=== PATIENT | male | born 1980 | race Caucasian/White ===

== ENCOUNTER 2021-06-29 03:25 | Emergency (ER) | payer SELFPAY ==
[~2021-06-29] VITALS: Ht 165.1 cm; Wt 63.5 kg
--- NOTE | 2021-06-29 03:41 | NUR ---
pt ambulated to room 4a. pt c/o lower extrem rash.
[2021-06-29] MEDS ORDERED: IV NORMAL SALINE 1000 ML BAG IV ONE (04:00)
[2021-06-29] MEDS ORDERED: PIPERACILLIN SODIUM/TAZOBACTAM 3.375 G in IV DEXTROSE 5% 50 ML IV ONE (04:00)
[2021-06-29] MEDS ORDERED: VANCOMYCIN IV 1,000 MG in IV DEXTROSE 5% 250 ML IV ONE (04:00)
[2021-06-29] MEDS ORDERED: KETOROLAC TROMETHAMINE 30 MG INJ IVP ONE (04:30)
[2021-06-29] MEDS ORDERED: VANCOMYCIN IV 200 ML ONE (04:32)
[2021-06-29] MEDS ORDERED: PIPERACILLIN/TAZOBACTAM/D5W 50 ML IV ONE (04:32)
--- NOTE | 2021-06-29 04:33 | NUR ---
radiology at bedside.
[2021-06-29] MEDS ORDERED: KETOROLAC TROMETHAMINE 30 MG INJ ONE (04:44)
[2021-06-29] MEDS ORDERED: ONDANSETRON 4 MG/2 ML VIAL IV ONE (04:45)
[2021-06-29] MEDS ORDERED: MORPHINE SULFATE 4 MG/1 ML DISP.SYRIN IV ONE (04:45)
[2021-06-29] MEDS ORDERED: MORPHINE SULFATE 4 MG/1 ML DISP.SYRIN ONE (04:55)
[2021-06-29] MEDS ORDERED: ONDANSETRON 4 MG/2 ML VIAL ONE (04:55)
[2021-06-29 04:57] LABS: HEMATOCRIT 41.3 % (36.7-47.1); MEAN CORPUSCULAR HEMOGLOBIN 30.5 uug (23.8-33.4); MEAN CORPUSCULAR VOLUME 88.7 fL (73.0-96.2); PLATELET COUNT (AUTO) 330 K/uL (152-348)
[2021-06-29 05:00] LABS: CARBON DIOXIDE 31 mmol/L (21-32); CHLORIDE 102 mmol/L (98-107); CREATININE 1.2 mg/dL (0.6-1.3); GLUCOSE 142 mg/dL (74-106); POTASSIUM 3.9 mmol/L (3.5-5.1); UREA NITROGEN, BLOOD 15 mg/dL (7-18)
[2021-06-29 05:05] LABS: ALANINE AMINOTRANSFERASE 50 U/L (16-63); ALKALINE PHOSPHATASE 112 U/L (50-136); ASPARTATE AMINOTRANSFERASE 28 U/L (15-37); BILIRUBIN,DIRECT < 0.1 mg/dL (0.0-0.2); BILIRUBIN,TOTAL 0.2 mg/dL (0.2-1.0); TOTAL PROTEIN, SERUM 8.1 g/dL (6.4-8.2)
--- NOTE | 2021-06-29 05:09 | NUR ---
pt has received zosyn iv, currently receiving vancomycin ivpb. pt is drowsy but awakens easily.
[2021-06-29] MEDS ORDERED: CEPH500C2 PO (06:26)
[2021-06-29] MEDS ORDERED: SULF1TAB48 PO (06:26)
[2021-06-29] MEDS ORDERED: HYDR-4209 PO (06:26)
--- NOTE | 2021-06-29 06:26 | NUR ---
call to pts friend Rima at [phone]. left message as there is no answer.
--- NOTE | 2021-06-29 06:47 | NUR ---
Patient discharged to home in stable condition. Written and verbal after care instructions given. Patient verbalizes understanding of instructions. Stressed follow up or return to ER for worsening s/s. iv removed, all d/c instructions reviewed with pt. informed pt it is time to go. pt continues to not want to leave. informed security.
[2021-06-29 07:01] VITALS: BP 130/82
== END 2021-06-29 07:01 | disposition home or self-care (01) ==
LOC: ER 03:30
DX: L03.012 Cellulitis of left finger (principal); S80.812A Abrasion, left lower leg, initial encounter; L08.9 Local infection of the skin and subcutaneous tissue, unspecified; X58.XXXA Exposure to other specified factors, initial encounter; Y92.89 Other specified places as the place of occurrence of the external cause; Z59.02 Unsheltered homelessness; F17.200 Nicotine dependence, unspecified, uncomplicated; Z20.822 Contact with and (suspected) exposure to COVID-19
CPT/HCPCS: 36415; 73140; 73590; 80048; 80076; 85025; 87426; 96365; 96367; 96375; 99284; J1885; J2270; J2405; J2543; J3370; A4663; J7030

== ENCOUNTER 2021-07-26 03:15 | Emergency (ER) | payer MEDICAID ==
[~2021-07-26] VITALS: Ht 167.6 cm; Wt 63.5 kg
[~2021-07-26 03:15] MED LIST: CEPH500C2 PO; HYDR-4209 PO; SULF1TAB48 PO
[2021-07-26] MEDS ORDERED: SULFAMETH/TRIMETH 800/160 MG TABLET PO ONE (03:30)
[2021-07-26] MEDS ORDERED: CEphaleXIN 500 MG CAPSULE PO ONE (03:30)
[2021-07-26] MEDS ORDERED: HYDROCODONE/APAP 5-325MG TABLET PO ONE (03:30)
[2021-07-26] MEDS ORDERED: CEPH500T PO (03:45)
[2021-07-26] MEDS ORDERED: SULF1TAB48 PO (03:45)
[2021-07-26] MEDS ORDERED: HYDR-4209 PO (03:45)
[2021-07-26] MEDS ORDERED: SULFAMETH/TRIMETH 800/160 MG TABLET ONE (03:56)
[2021-07-26] MEDS ORDERED: CEphaleXIN 500 MG CAPSULE ONE (03:57)
[2021-07-26] MEDS ORDERED: HYDROCODONE/APAP 5-325MG TABLET ONE (03:58)
--- NOTE | 2021-07-26 04:38 | NUR ---
Pt brought into room ED5A by telesales advisor Gamaliel because pt had multiple wounds and abcesses on all 4 ext. Pt states that he is in need of an abx scribt and that the one he had from a previous visit was never filled because he had lost it. Pt has good color and appearance, VSS, PE wnl except for abcesses. Pt has good strength and strong and reg pulses x4ext. Lungs clear, oxygenating and perfusing well. pt has mild pain and denies any SOB, n/v or dizziness. No s/sx of distress noted.
--- NOTE | 2021-07-26 04:39 | NUR ---
EDMD at bedside for eval
--- NOTE | 2021-07-26 04:40 | NUR ---
EDMD ordered abx and opiod for pain as well as some wound care and dressings.
--- NOTE | 2021-07-26 04:42 | NUR ---
Medications given, wounds cleansed and dressed, Dc instructions given and pt confirmed understanding of aftercare. VSS, pe wnl, pt has good color and is oxygenating well. no complaints of pain, sob, n/v or dizziness.
[2021-07-26 06:14] VITALS: BP 124/87
== END 2021-07-26 04:45 | disposition home or self-care (01) ==
LOC: ER 03:17
DX: S81.802A Unspecified open wound, left lower leg, initial encounter (principal); L03.116 Cellulitis of left lower limb; X58.XXXA Exposure to other specified factors, initial encounter; Y92.89 Other specified places as the place of occurrence of the external cause; F17.210 Nicotine dependence, cigarettes, uncomplicated; Z59.02 Unsheltered homelessness
CPT/HCPCS: A4663